=== PATIENT | male | born 1950 | race Caucasian/White ===

== ENCOUNTER 2017-12-04 09:11 | Emergency (ER) | payer MEDICARE, OTHER ==
[2017-12-04 10:13] LABS: BASOPHILS % (AUTO) 0.2 %; EOSINOPHILS # (AUTO) 0.2 10^3/uL (0.0-0.7); EOSINOPHILS % (AUTO) 2.4 %; HGB - HEMOGLOBIN 13.2 g/dL (14.0-18.0); LYMPHOCYTES # (AUTO) 1.6 10^3/uL (1.5-3.5); LYMPHOCYTES % (AUTO) 17.1 %; MEAN CORPUSCULAR HEMOGLOBIN 30.3 pg (27.0-31.0); MEAN PLATELET VOLUME 9.6 fL (7.4-11.4); MONOCYTES # (AUTO) 0.8 10^3/uL (0.0-1.0); MONOCYTES % (AUTO) 8.9 %; NEUTROPHILS # (AUTO) 6.6 10^3/uL (1.5-6.6); NEUTROPHILS % (AUTO) 71.4 %; PLT - PLATELET COUNT 174 10^3/uL (130-450); RED BLOOD COUNT 4.38 10^6/uL (4.70-6.10); RED CELL DISTRIBUTION WIDTH 14.4 % (12.0-15.0); WHITE BLOOD COUNT 9.2 x10^3/uL (4.8-10.8)
[2017-12-04 10:26] LABS: ALBUMIN 4.3 g/dL (3.2-5.5); ALBUMIN/GLOBULIN RATIO 1.3 (1.0-2.2); BILIRUBIN,TOTAL 0.3 mg/dL (0.2-1.0); CALCIUM 8.8 mg/dL (8.5-10.3); TOTAL PROTEIN 7.5 g/dL (6.7-8.2)
[2017-12-04 12:09] VITALS: BP 126/80
--- NOTE | 2017-12-04 12:16 | ED Physician Documentation ---
PD HPI NVD - Stated complaint Stated Complaint: DIARRHEA/BLACK STOOL - Chief complaint Chief Complaint: Abd Pain - History obtained from History obtained from: Patient - History of Present Illness Timing - duration: Weeks (2) Timing - details: Still present Contributing factors: Travel Similar symptoms before: Has not had sx before - Treatment prior to arrival Treatment prior to arrival: Kaopectate - Additonal information Additional information: The patient is a 67-year-old male who presents with diarrhea that started 2 weeks ago and has persisted since that time. He reports having 3 or 4 watery stools per day. He denies any associated fever, nausea, vomiting, or abdominal discomfort. His symptoms started while he was traveling from [place] to [place], after eating at a restaurant in [place], [place]. He initially tried using Pepto-Bismol, without any relief in his symptoms. He has since then tried Kaopectate without improvement. He denies history of similar symptoms in the past. His past medical history is significant for coronary artery disease for which he is status post CABG. Review of Systems Constitutional: denies: Fever Nose: denies: Congestion Throat: denies: Sore throat Cardiac: denies: Chest pain / pressure Respiratory: denies: Dyspnea, Cough GI: reports: Diarrhea. denies: Abdominal Pain, Nausea, Vomiting : denies: Dysuria Skin: denies: Rash Musculoskeletal: denies: Back pain Neurologic: denies: Headache PD PAST MEDICAL HISTORY - Past Medical History Past Medical History: Yes Cardiovascular: Congestive heart failure, Hypertension, High cholesterol, GA, Atrial fibrillation, Valve disorder Endocrine/Autoimmune: None Psych: Post traumatic stress disorder Musculoskeletal: Osteoarthritis - Past Surgical History Past Surgical History: Yes General: Hiatal hernia repair Cardiovascular: CABG HEENT: Tonsil/Adenoidectomy - Present Medications Home Medications: Ambulatory Orders Medication Instructions Recorded Confirmed Loperamide [Imodium] 2 mg PO BID PRN #14 capsule 12/04/17 - Allergies Allergies/Adverse Reactions: Allergies Allergy/AdvReac Type Severity Reaction Status Date / Time No Known Drug Allergies Allergy Verified 12/04/17 09:33 - Social History Does the pt smoke?: Yes Smoking Status: Former smoker Does the pt drink ETOH?: No Does the pt have substance abuse?: No - Immunizations Immunizations are current?: Yes - POLST Patient has POLST: No PD ED PE NORMAL - Vitals Vital signs reviewed: Yes (normal) - General General: Alert and oriented X 3, Well developed/nourished - HEENT HEENT: Atraumatic, Moist mucous membranes, Pharynx benign - Neck Neck: No adenopathy, No JVD - Cardiac Cardiac: RRR - Respiratory Respiratory: No respiratory distress, Clear bilaterally - Abdomen Abdomen: Normal bowel sounds, Soft, Non tender, No organomegaly - Back Back: No CVA TTP - Derm Derm: No rash - Extremities Extremities: No edema, No calf tenderness / cord - Neuro Neuro: Alert and oriented X 3, No motor deficit, Normal speech Results - Vitals Vitals: Oxygen O2 Source Room air - Labs Labs: Microbiology 12/04/17 11:55 Campylobacter Antigen Assay - Final Stool Stool Culture - Final NO SALMONELLA, SHIGELLA, E. COLI 0157, AEROMONAS, EDWARDSIELLA, PLESIOMONAS, YERSINIA, OR VIBRIO ISOLATED. NO SHIGA TOXIN 1 OR 2 DETECTED. Laboratory Tests 12/04/17 12/04/17 10:02 10:02 WBC 9.2 RBC 4.38 L Hgb 13.2 L Hct 39.0 L MCV 89.0 MCH 30.3 MCHC 34.0 RDW 14.4 Plt Count 174 MPV 9.6 Neut # 6.6 Lymph # 1.6 [place] # 0.8 Eos # 0.2 Baso # 0.0 Absolute Nucleated RBC 0.01 Nucleated RBC % 0.1 Sodium 138 Potassium 3.8 Chloride 103 Carbon Dioxide 27 Anion Gap 8.0 BUN 23 H Creatinine 1.0 Estimated GFR (MDRD) 75 L Glucose 119 H Calcium 8.8 Total Bilirubin 0.3 AST 19 ALT 17 Alkaline Phosphatase 86 Total Protein 7.5 Albumin 4.3 Globulin 3.2 Albumin/Globulin Ratio 1.3 Lipase 21 L PD MEDICAL DECISION MAKING - ED course Complexity details: reviewed results, re-evaluated patient, considered differential, d/w patient ED course: The underlying cause of the patient's diarrhea is not clear at this time. Clinically, it does not appear to be an invasive bacterial infection, with no fever, abdominal pain, or other symptoms besides diarrhea. CBC and chemistry panel are unremarkable. Stool sample was obtained and sent to the lab for culture. I discussed with the patient symptomatic treatment, outpatient follow-up, as well as potentially worrisome signs or symptoms that should prompt reevaluation in the emergency department. He is being discharged with prescription for Imodium. Departure - Departure Disposition: 01 Home, Self Care Clinical Impression: Diarrhea Condition: Stable Instructions: ED Diarrhea Traveler Prescriptions: Loperamide [Imodium] 2 mg PO BID PRN #14 capsule PRN Reason: Diarrhea Comments: Drink plenty of fluids. You can use Imodium as prescribed if needed for recurrent diarrhea. Follow-up for stool culture results after 3 or 4 days. Return to the emergency department if you develop increasing abdominal pain, dehydration, persistent vomiting, or otherwise worsening symptoms. Discharge Date/Time: 12/04/17 12:25
== END 2017-12-04 12:25 | disposition home or self-care (01) ==
LOC: ED 09:11
DX: R19.7 Diarrhea, unspecified (principal); I11.0 Hypertensive heart disease with heart failure; I50.9 Heart failure, unspecified; I25.2 Old myocardial infarction; I48.91 Unspecified atrial fibrillation; E78.00 Pure hypercholesterolemia, unspecified; M19.90 Unspecified osteoarthritis, unspecified site; I25.10 Atherosclerotic heart disease of native coronary artery without angina pectoris; Z95.1 Presence of aortocoronary bypass graft; Z87.891 Personal history of nicotine dependence
CPT/HCPCS: 36415; 80053; 83690; 85025; 87045; 87046; 99283